=== PATIENT | female | born 1940 | race Caucasian/White ===

== ENCOUNTER 2021-04-13 10:00 | Outpatient (RCR) | payer MEDICARE, SELFPAY ==
--- NOTE | 2021-03-27 12:06 | PTOPEVAL ---
INITIAL PHYSICAL THERAPY EVALUATION and PLAN OF CARE Thank you for referring Erin Bell to [facility].? Elizabeth is scheduled to be seen for physical therapy? 2x/week for 3 weeks at this time due to upcoming vacation. Please review, sign, date and return this plan of care FLOR[place]IN. I agree with and certify that the following plan of care is medically necessary. 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 Gastrointestinal History Hx Gastroesophageal Reflux Disease Yes Hx Other Gastrointestinal Disorders Yes: 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, spleen removed Genitourinary History Hx Urinary Tract Infection Yes: on/off antibiotics for frequent UTI Hx Other Genitourinary Disorders Yes: urinary frequency, urether stent R side Musculoskeletal History Hx Arthritis Yes: generalized Reproductive History Hx Hysterectomy Yes: 2017 Other History Hx Cancer Yes: Colon Ca - 2016 - surgery 2016,2017,2018-tumor removal Hx Chemotherapy Yes Evaluation Information Problem Diagnosis Lichen schoerosus, postmenopausal atrophic vaginitis Onset years - worsening recently Subjective Information Erin reports most current Query Text:As Reported By Patient/ symptom is that when she Family begins to urinate - will have pain right after she starts then will continue while she urinates, then stops a few seconds after she urinates. Pain is in region of clitoris. Taking chemo for stage IV colon cancer - has 1/3 of small intestines and 2/3's of large intestine. 1 week after chemo - will have copious amount of urine for 1 night - up every 30 minutes. Normally will get up at night every hour. Frequenc
--- NOTE | 2021-04-13 13:22 | PTOPEVAL ---
PHYSICAL THERAPY DISCHARGE SUMMARY Thank you for referring Erin eBll to [facility].? Erin was seen x 6 visits. Some progress was made towards goals set, but increased pain levels remain. She is being discharged from PT due to upcoming long vacation. I agree with Erin's discharge from PT. Referring Physician Date Admitting Provider: Attending Provider: PHYSICIAN NOT ON STAFF Referring Provider: Zoey South MD Therapy Assessment Status Assessment Status Assessment Status Discharge Evaluation Information Problem Diagnosis Lichen schoerosus, postmenopausal atrophic vaginitis Subjective Information Erin states when she goes to Query Text:As Reported By Patient/ bed doesn't have to urinate Family for 2-2.5 hours - then afterwards going every hour and half vs 30 min. First hour or so in morning - urinating every 15 min - then returns to every hour - hour and a half frequency. Still having discomfort at rest 3-4/ 10 and with urination discomfort can go up to 8-9/10 . Discomfort with urination begins after initiation and lasts 5 min or so after urination. Did have less discomfort on Tuesday after tx on Tuesday but began to return on Tuesday and back to normal today. Pain Assessment Self Report Pain Assessment Perineum Reported Pain Level 4 Pelvic Health Evaluation Pelvic Floor Assessment Permission Received for External/ Yes Internal Perineal Exam External Perineal Body Palpation improved lower abdominal scar mobility now present Internal Perineal Body Palpation less soft tissue tension in 12 -2 o'clock region - some tenderness/burning sensation present Sustained Levator Ani Strength 4 Quick Levator Ani Contraction in 15 12 Seconds PT Clinical Summary Clinical Summary Protocol: PTEVCODE PT Clinical Summary Incontinence Impact Questionnaire - 19% Urogenital Distress Inventory - 61% Erin has made objective gains in regards to decreased soft tissue tightness and scar
== END 2021-05-01 09:10 | disposition home or self-care (01) ==
LOC: ANHHIPT 10:00
DX: L90.0 Lichen sclerosus et atrophicus (principal); N95.2 Postmenopausal atrophic vaginitis; N94.819 Vulvodynia, unspecified
CPT/HCPCS: 97140; 97162

== ENCOUNTER 2022-04-16 08:51 | Outpatient (RCR) | payer MEDICARE, SELFPAY ==
--- NOTE | 2022-04-20 09:59 | PCWOUND ---
WOCN NOTE patient called stating her appliances are not sticking more than 3 to 4 hours. through conversation patient did say the appliance that was applied in the wound center did last for two and 1/2 days. After she started changing them they are not lasting. educated on the steps to change appliance, patient expressed understanding and that she believes the paste is the problem. Offered if she wanted to make another appointment and bring a helper we can teach how to apply the appliances that is an option. patient declined at this time.
== END 2022-05-31 08:37 | disposition home or self-care (01) ==
LOC: ANHWOC 08:51
DX: K63.2 Fistula of intestine (principal)
CPT/HCPCS: 99214; G0463